=== PATIENT | female | born 1950 | race African-American/Black ===

== ENCOUNTER 2016-12-12 14:42 | Emergency (ER) | payer MEDICARE ==
[~2016-12-12] VITALS: Ht 162.6 cm; Wt 82.0 kg
[~2016-12-12 14:42] MED LIST: ACCURETIC1 TAB; ACCURETIC1 TAB OR; ADULT ASPIRIN L81 MG PO; ALTACE10 MG OR; AMLODIPINE5 MG PO; ATORVASTATIN CA10 MG PO; BABY ASPIRIN81 MG OR; BACTRIM DS1 TAB OR; CARBAMAZEPIN200 M1; CIPROFLOXACN500 MG PO; CRESTOR10 MG OR; FIORICE1 PO; FLEXERIL PO; GOLYTELY4000 ML; GOLYTELY4000 ML OR; HYDROCO/APAP1 TA9 PO; LISINOP/HCTZ1 TA1; LISINOP/HCTZ1 TAB PO; LORTAB 5 OR; LORTAB 5-325 MG1 TAB PO; LORTAB 7.5-3251 TAB PO; MEDDOSEPAK OR; METFORMIN500 M1 PO; METFORMIN500 MG; METFORMIN500 MG OR; METFORMIN500 MG PO; NAPROSYN500 MG PO; NAPROXEN500 MG; NEOMYCIN500 MG OR; NEXIUM40 M1 PO; PCE500 MG OR; PHENERGAN SUPP RE; PROTONIX40 M2 PO; QC ASPIRIN OR; SIMVASTATIN40 MG; SIMVASTATIN40 MG OR; SIMVASTATIN40 MG PO; TEGRETOL OR; TEGRETOL200 MG PO; VITAMIN B-12500 MCG PO; ZOFRAN4 MG/TAB PO; [UNRECOGNIZED DRUG - REMARK]
[2016-12-12 16:17] LABS: URINE BILIRUBIN - DIPSTICK NEGATIVE (NEGATIVE); URINE BLOOD DIPSTICK TRACE-INTACT (NEGATIVE); URINE CLARITY CLEAR; URINE COLOR YELLOW; URINE GLUCOSE - DIPSTICK NEGATIVE (NEGATIVE); URINE KETONE NEGATIVE (NEGATIVE); URINE LEUK ESTERASE NEGATIVE (NEGATIVE); URINE NITRITE - DIPSTICK NEGATIVE (Negative); URINE PH 5.5 (4.5-8.0); URINE PROTEIN - DIPSTICK NEGATIVE (NEG-TRACE); URINE SPECIFIC GRAVITY <=1.005; URINE UROBILINOGEN - DIPSTICK 0.2 E.U./dL (0.2)
[2016-12-12 16:53] LABS: HEMATOCRIT 35.1 % (37.0-47.0); IMMATURE GRANULOCYTES 0.2 % (0.0-1.0); MEAN CELL VOLUME 84.6 fL CALC (80.0-100.0); MEAN CORPUSCULAR HGB 28.9 pG CALC (26.0-32.0); MEAN CORPUSCULAR HGB CONC 34.2 g/L CALC (32.0-36.0); NEUT# 2.81 thou/uL (2.00-7.15); RED BLOOD COUNT 4.15 mill/uL (4.20-5.60); RED CELL DISTRI WIDTH 13.3 % (11.5-15.5)
[2016-12-12 17:26] LABS: ALBUMIN 4.5 g/dL (3.2-5.0); ALKALINE PHOSPHATASE 117 u/l (38-126); ANION GAP 16 (6-22 (CALC)); BILIRUBIN, TOTAL 0.4 mg/dL (0.0-1.4); BUN 16 mg/dL (8-23); BUN/CREATININE RATIO 23 (12-20 (CALC)); CALCIUM 9.3 mg/dL (8.4-10.2); CARBON DIOXIDE 31 mmol/l (22-30); CHLORIDE 99 mmol/l (95-108); CREATININE 0.7 mg/dL (0.5-1.0); GFR > 60 ML/MIN (>=60 (CALC)); GFR FOR AFR.AMER. > 60 ML/MIN (>=60 (CALC)); GLUCOSE 127 mg/dL (82-115); SGOT/AST 21 u/l (9-36); SGPT/ALT 20 u/l (11-66); SODIUM 141 mmol/l (137-146); TOTAL PROTEIN 8.5 g/dL (6.3-8.2)
[2016-12-12 17:39] LABS: MYOGLOBIN 40 ng/mL (0 - 62)
[2016-12-12 18:15] VITALS: BP 166/77
== END 2016-12-12 18:35 | disposition home or self-care (01) ==
LOC: ED 14:42
PROVIDERS: Emergency Medicine
DX: R06.00 Dyspnea, unspecified (principal); R06.02 Shortness of breath; R00.2 Palpitations

== ENCOUNTER 2017-03-01 08:01 | Emergency (ER) | payer MEDICARE ==
[~2017-03-01] VITALS: Ht 162.6 cm; Wt 75.0 kg
[2017-03-01] MEDS ORDERED: CRESTOR5 MG PO (08:19)
[2017-03-01] MEDS ORDERED: FLEXERIL PO (10:54)
[2017-03-01 11:03] VITALS: BP 139/62
== END 2017-03-01 11:11 | disposition home or self-care (01) ==
LOC: ED 08:01
DX: M62.838 Other muscle spasm (principal); M54.2 Cervicalgia; X50.0XXA Overexertion from strenuous movement or load, initial encounter; Y93.E9 Activity, other interior property and clothing maintenance; Y92.009 Unspecified place in unspecified non-institutional (private) residence as the place of occurrence of the external cause

== ENCOUNTER 2017-12-16 05:53 | Day surgery (SDC) | payer MEDICARE ==
[~2017-12-16] VITALS: Ht 162.6 cm; Wt 73.0 kg
[~2017-12-16 05:53] MED LIST changes: +CRESTOR5 MG PO; +PRAVASTATIN SOD20 MG PO
[2017-12-16 07:45] VITALS: BP 121/58
== END 2017-12-16 08:10 | disposition home or self-care (01) ==
LOC: ENDO 05:53 → ORM 08:45
PROVIDERS: ATTEND Surgery
PROC: 0DJD8ZZ Inspection of Lower Intestinal Tract, Via Natural or Artificial Opening Endoscopic (ICD-10-PCS; principal; 2017-12-16)
DX: R97.0 Elevated carcinoembryonic antigen [CEA] (principal); K21.9 Gastro-esophageal reflux disease without esophagitis; G40.909 Epilepsy, unspecified, not intractable, without status epilepticus; I10 Essential (primary) hypertension; E78.5 Hyperlipidemia, unspecified; E11.9 Type 2 diabetes mellitus without complications; Z79.84 Long term (current) use of oral hypoglycemic drugs; Z85.038 Personal history of other malignant neoplasm of large intestine; Z90.49 Acquired absence of other specified parts of digestive tract

== ENCOUNTER 2017-12-20 01:14 | Emergency (ER) | payer MEDICARE ==
[~2017-12-20] VITALS: Ht 162.6 cm; Wt 72.8 kg
[2017-12-20 02:58] LABS: HEMATOCRIT 35.6 % (37.0-47.0); HEMOGLOBIN 12.1 g/dl (12.0-16.0); IMMATURE GRANULOCYTES 0.2 % (0.0-1.0); MEAN CELL VOLUME 86.8 fL CALC (80.0-100.0); MEAN CORPUSCULAR HGB 29.5 pG CALC (26.0-32.0); NEUT# 3.42 thou/uL (2.00-7.15); RED BLOOD COUNT 4.1 mill/uL (4.20-5.60); RED CELL DISTRI WIDTH 13.3 % (11.5-15.5)
[2017-12-20 02:59] LABS: URINE BILIRUBIN - DIPSTICK NEGATIVE (NEGATIVE); URINE BLOOD DIPSTICK NEGATIVE (NEGATIVE); URINE COLOR YELLOW; URINE GLUCOSE - DIPSTICK NEGATIVE (NEGATIVE); URINE KETONE NEGATIVE (NEGATIVE); URINE LEUK ESTERASE NEGATIVE (NEGATIVE); URINE NITRITE - DIPSTICK NEGATIVE (Negative); URINE PROTEIN - DIPSTICK NEGATIVE (NEG-TRACE); URINE UROBILINOGEN - DIPSTICK 0.2 E.U./dL (0.2)
[2017-12-20 03:02] LABS: BARBITURATES NEGATIVE (NEGATIVE); COCAINE NEGATIVE (NEGATIVE); METHADONE NEGATIVE (NEGATIVE); OXCYCODONE NEGATIVE (NEGATIVE); TETRAHYDROCANNABIONOL NEGATIVE (NEGATIVE); TRICYLIC ANTIDEPRESSANTS NEGATIVE (NEGATIVE)
[2017-12-20 03:03] LABS: URINE CLARITY CLEAR
[2017-12-20 03:04] LABS: ALBUMIN 4.1 g/dL (3.2-5.0); ALKALINE PHOSPHATASE 101 u/l (38-126); ANION GAP 19 (6-22 (CALC)); BILIRUBIN, TOTAL 0.2 mg/dL (0.0-1.4); BUN 10 mg/dL (8-23); BUN/CREATININE RATIO 15 (12-20 (CALC)); CARBON DIOXIDE 28 mmol/l (22-30); CHLORIDE 100 mmol/l (95-108); CREATININE 0.6 mg/dL (0.5-1.0); GFR > 60 ML/MIN (>=60 (CALC)); GFR FOR AFR.AMER. > 60 ML/MIN (>=60 (CALC)); POTASSIUM 3.8 mmol/l (3.5-5.1); SGOT/AST 23 u/l (9-36); SGPT/ALT 22 u/l (11-66); SODIUM 143 mmol/l (137-146); TOTAL PROTEIN 7.2 g/dL (6.3-8.2)
[2017-12-20 03:09] LABS: PROTHROMBIN TIME 10.8 SECONDS (9.0-12.5)
[2017-12-20 03:14] LABS: MYOGLOBIN 31 ng/mL (0 - 62)
[2017-12-20 05:19] VITALS: BP 158/73
== END 2017-12-20 05:30 | disposition home or self-care (01) ==
LOC: ED 01:14
PROVIDERS: Emergency Medicine
DX: R42 Dizziness and giddiness (principal); I10 Essential (primary) hypertension; E11.9 Type 2 diabetes mellitus without complications; Z79.84 Long term (current) use of oral hypoglycemic drugs; E78.00 Pure hypercholesterolemia, unspecified; Z85.038 Personal history of other malignant neoplasm of large intestine

== ENCOUNTER 2018-04-26 20:02 | Emergency (ER) | payer MEDICARE ==
[~2018-04-26] VITALS: Ht 162.6 cm; Wt 74.0 kg
[2018-04-26] MEDS ORDERED: ORPHENADRINE100 MG PO (21:46)
[2018-04-26] MEDS ORDERED: IBUPROFEN600 MG PO (21:46)
[2018-04-26 21:55] VITALS: BP 158/77
== END 2018-04-26 21:55 | disposition home or self-care (01) ==
LOC: ED 20:02
DX: M47.812 Spondylosis without myelopathy or radiculopathy, cervical region (principal); I10 Essential (primary) hypertension; E11.9 Type 2 diabetes mellitus without complications; E78.00 Pure hypercholesterolemia, unspecified; Z87.19 Personal history of other diseases of the digestive system

== ENCOUNTER 2018-06-30 08:26 | Emergency (ER) | payer MEDICARE ==
[~2018-06-30] VITALS: Ht 162.6 cm; Wt 71.0 kg
[~2018-06-30 08:26] MED LIST changes: +IBUPROFEN600 MG PO; +ORPHENADRINE100 MG PO
[2018-06-30] MEDS ORDERED: VOLTAREN - GENE75 MG PO ×2 (09:41→10:15)
[2018-06-30 10:24] VITALS: BP 134/77
== END 2018-06-30 10:24 | disposition home or self-care (01) ==
LOC: ED 08:26
DX: M16.12 Unilateral primary osteoarthritis, left hip (principal); M79.605 Pain in left leg; M25.552 Pain in left hip

== ENCOUNTER 2018-11-07 08:27 | Emergency (ER) | payer MEDICARE ==
[~2018-11-07] VITALS: Ht 162.6 cm; Wt 73.6 kg
[~2018-11-07 08:27] MED LIST changes: +VOLTAREN - GENE75 MG PO
[2018-11-07] MEDS ORDERED: PREDNISONE10 MG PO ×2 (11:32→11:34)
[2018-11-07] MEDS ORDERED: TORADOL PO (11:32)
[2018-11-07] MEDS ORDERED: FLEXERIL PO (11:33)
[2018-11-07 11:48] VITALS: BP 160/82
== END 2018-11-07 12:12 | disposition home or self-care (01) ==
LOC: ED 08:27
DX: M54.5 Low back pain (principal); M54.2 Cervicalgia; G89.29 Other chronic pain; I10 Essential (primary) hypertension; E11.9 Type 2 diabetes mellitus without complications; M19.90 Unspecified osteoarthritis, unspecified site

== ENCOUNTER 2019-04-11 01:38 | Emergency (ER) | payer MEDICARE ==
[~2019-04-11] VITALS: Ht 162.6 cm; Wt 73.0 kg
[~2019-04-11 01:38] MED LIST changes: +PREDNISONE10 MG PO; +TORADOL PO
[2019-04-11 02:40] VITALS: BP 168/80
== END 2019-04-11 02:40 | disposition home or self-care (01) ==
LOC: ED 01:38
DX: E11.9 Type 2 diabetes mellitus without complications (principal); I10 Essential (primary) hypertension; Z79.84 Long term (current) use of oral hypoglycemic drugs

== ENCOUNTER 2021-02-14 00:52 | Emergency (ER) | payer MEDICARE ==
[~2021-02-14] VITALS: Ht 162.6 cm; Wt 72.0 kg
[2021-02-14 01:33] VITALS: BP 132/63
== END 2021-02-14 01:39 | disposition home or self-care (01) ==
LOC: ED 00:52
DX: E11.65 Type 2 diabetes mellitus with hyperglycemia (principal); I10 Essential (primary) hypertension; Z79.84 Long term (current) use of oral hypoglycemic drugs

== ENCOUNTER → 2021-05-31 | Outpatient (REF) | payer MEDICARE ==
[2021-05-31 10:31] LABS: ALBUMIN 4.1 g/dL (3.2-5.0); ALKALINE PHOSPHATASE 82 u/l (38-126); ANION GAP 11 (6-22 (CALC)); BILIRUBIN, TOTAL 0.4 mg/dL (0.0-1.4); BUN 16 mg/dL (8-23); BUN/CREATININE RATIO 18 (12-20 (CALC)); CALCULATED LDLCHOLESTEROL 173 mg/dL (62-129 (CALC)); CARBON DIOXIDE 29 mmol/l (22-30); CHLORIDE 101 mmol/l (95-108); CREATININE 0.9 mg/dL (0.5-1.0); GFR > 60 ML/MIN (>=60 (CALC)); GFR FOR AFR.AMER. > 60 ML/MIN (>=60 (CALC)); HDL CHOLESTEROL 52 mg/dL (>=40); POTASSIUM 4.4 mmol/l (3.5-5.1); SGOT/AST 24 u/l (9-36); SODIUM 137 mmol/l (137-146); TOTAL CHOLESTEROL 256 mg/dl (0-199); TOTAL PROTEIN 7.4 g/dL (6.3-8.2); TOTAL TRIGLYCERIDES 155 mg/dl (30-149); VLDL CHOLESTROL 31 mg/dl (0-48 (CALC))
== END | disposition home or self-care (01) ==
LOC: LAB 09:05
PROVIDERS: ATTEND Internal Medicine
DX: E11.40 Type 2 diabetes mellitus with diabetic neuropathy, unspecified (principal); E78.49 Other hyperlipidemia; I10 Essential (primary) hypertension

== ENCOUNTER 2021-06-02 12:43 | Emergency (ER) | payer MEDICARE ==
[~2021-06-02] VITALS: Ht 162.6 cm; Wt 74.5 kg
[2021-06-02 13:23] LABS: HEMATOCRIT 37.9 % (37.0-47.0); HEMOGLOBIN 12.2 g/dl (12.0-16.0); MEAN CELL VOLUME 82.8 fL CALC (80.0-100.0); MEAN CORPUSCULAR HGB 26.6 pG CALC (26.0-32.0); MEAN CORPUSCULAR HGB CONC 32.2 g/dL CAL (32.0-36.0); NEUT# 3.51 thou/uL (2.00-7.15); RED BLOOD COUNT 4.58 mill/uL (4.20-5.60); RED CELL DISTRI WIDTH 14.3 % (11.5-15.5)
[2021-06-02 13:36] LABS: ACT PARTIAL THROMBO TIME 22.1 SECONDS (20.0-32.5); ALBUMIN 4.3 g/dL (3.2-5.0); ALKALINE PHOSPHATASE 79 u/l (38-126); AMYLASE 70 u/l (30-110); ANION GAP 14 (6-22 (CALC)); BILIRUBIN, TOTAL 0.4 mg/dL (0.0-1.4); BUN 15 mg/dL (8-23); BUN/CREATININE RATIO 17 (12-20 (CALC)); CARBON DIOXIDE 27 mmol/l (22-30); CHLORIDE 100 mmol/l (95-108); CREATININE 0.8 mg/dL (0.5-1.0); ETHYL ALCOHOL 0 mg/dl (0-30); GFR > 60 ML/MIN (>=60 (CALC)); GFR FOR AFR.AMER. > 60 ML/MIN (>=60 (CALC)); LIPASE 32 u/l (23-300); POTASSIUM 4.1 mmol/l (3.5-5.1); PROTHROMBIN TIME 10.5 SECONDS (9.0-12.5); SODIUM 137 mmol/l (137-146)
[2021-06-02 13:37] LABS: SGOT/AST 82 u/l (9-36)
[2021-06-02 14:31] LABS: URINE BILIRUBIN - DIPSTICK NEGATIVE (NEGATIVE); URINE BLOOD DIPSTICK TRACE-INTACT (NEGATIVE); URINE COLOR YELLOW; URINE GLUCOSE - DIPSTICK 100 mg/dL (NEGATIVE); URINE KETONE NEGATIVE (NEGATIVE); URINE LEUK ESTERASE NEGATIVE (NEGATIVE); URINE PROTEIN - DIPSTICK NEGATIVE (NEG-TRACE); URINE SPECIFIC GRAVITY <=1.005; URINE UROBILINOGEN - DIPSTICK 0.2 E.U./dL (0.2)
[2021-06-02 14:32] LABS: URINE NITRITE - DIPSTICK NEGATIVE (Negative)
[2021-06-02 15:02] VITALS: BP 132/66
== END 2021-06-02 15:03 | disposition home or self-care (01) ==
LOC: ED 12:43
DX: R55 Syncope and collapse (principal); I10 Essential (primary) hypertension; E11.9 Type 2 diabetes mellitus without complications; G40.909 Epilepsy, unspecified, not intractable, without status epilepticus; M25.521 Pain in right elbow; Z85.038 Personal history of other malignant neoplasm of large intestine; Z79.84 Long term (current) use of oral hypoglycemic drugs; Z20.822 Contact with and (suspected) exposure to COVID-19

== ENCOUNTER 2021-12-02 08:38 | Emergency (ER) | payer MEDICARE ==
[~2021-12-02] VITALS: Ht 162.6 cm; Wt 72.0 kg
[2021-12-02 09:00] VITALS: BP 143/73
[2021-12-02 09:11] VITALS: BP 143/73
== END 2021-12-02 09:17 | disposition home or self-care (01) ==
LOC: ED 08:38
DX: E11.65 Type 2 diabetes mellitus with hyperglycemia (principal); I10 Essential (primary) hypertension; E78.5 Hyperlipidemia, unspecified; Z79.84 Long term (current) use of oral hypoglycemic drugs; Z85.038 Personal history of other malignant neoplasm of large intestine

== ENCOUNTER 2022-03-20 10:00 | Emergency (ER) | payer MEDICARE ==
[~2022-03-20] VITALS: Ht 162.6 cm; Wt 72.7 kg
[2022-03-20] VITALS (9 sets, daily range): BP systolic 140–160; BP diastolic 47–99
[~2022-03-20 10:00] MED LIST changes: -AMLODIPINE5 MG PO; +NORVASC5 M1 PO
[2022-03-20 10:28] LABS: GFR FOR AFR.AMER. > 60 ML/MIN (>=60 (CALC)); GFR OTHER RACES > 60 ML/MIN (>=60 (CALC))
[2022-03-20 10:33] LABS: HEMATOCRIT 36.7 % (37.0-47.0); HEMOGLOBIN 12.1 g/dl (12.0-16.0); IMMATURE GRANULOCYTES 0.1 % (0.0-5.0); MEAN CELL VOLUME 80.5 fL CALC (80.0-100.0); MEAN CORPUSCULAR HGB 26.5 pG CALC (26.0-32.0); NEUT# 7.9 thou/uL (2.00-7.15); RED BLOOD COUNT 4.56 mill/uL (4.20-5.60); RED CELL DISTRI WIDTH 15.4 % (11.5-15.5)
[2022-03-20 11:14] LABS: ALBUMIN 3.6 g/dL (3.2-5.0); ALKALINE PHOSPHATASE 68 u/l (38-126); BILIRUBIN, TOTAL 0.6 mg/dL (0.0-1.4); BUN 11 mg/dL (8-23); BUN/CREATININE RATIO 15 (12-20 (CALC)); CARBON DIOXIDE 25 mmol/l (22-30); CHLORIDE 91 mmol/l (95-108); CREATININE 0.7 mg/dL (0.5-1.0); GFR FOR AFR.AMER. > 60 ML/MIN (>=60 (CALC)); GFR OTHER RACES > 60 ML/MIN (>=60 (CALC)); SGOT/AST 40 u/l (9-36); TOTAL PROTEIN 6.6 g/dL (6.3-8.2)
[2022-03-20 11:15] LABS: ANION GAP 11 (6-22 (CALC)); POTASSIUM 3.4 mmol/l (3.5-5.1); SODIUM 124 mmol/l (137-146)
[2022-03-20 11:34] LABS: URINE BILIRUBIN - DIPSTICK NEGATIVE (NEGATIVE); URINE BLOOD DIPSTICK MODERATE (NEGATIVE); URINE COLOR YELLOW; URINE GLUCOSE - DIPSTICK NEGATIVE (NEGATIVE); URINE KETONE 15 mg/dL (NEGATIVE); URINE LEUK ESTERASE NEGATIVE (NEGATIVE); URINE SPECIFIC GRAVITY <=1.005; URINE UROBILINOGEN - DIPSTICK 0.2 E.U./dL (0.2)
[2022-03-20 11:37] LABS: URINE NITRITE - DIPSTICK NEGATIVE (Negative)
[2022-03-20 11:46] LABS: URINE EPITHELIAL CELLS RARE EPI/hpf (0-FEW); URINE PROTEIN - DIPSTICK NEGATIVE (NEG-TRACE); URINE RBC 0-2 RBC/hpf (0-5)
[2022-03-20 11:49] LABS: INTERNATIONAL NORMALIZED RATIO 1.1 RATIO (0.7-1.3); PROTHROMBIN TIME 11.3 SECONDS (9.0-12.5)
== END 2022-03-20 15:30 | disposition short-term general hospital (02) ==
LOC: ED 10:00
PROVIDERS: Family Medicine
DX: I63.9 Cerebral infarction, unspecified (principal); R29.701 NIHSS score 1; E87.1 Hypo-osmolality and hyponatremia; I10 Essential (primary) hypertension; E11.9 Type 2 diabetes mellitus without complications; E78.5 Hyperlipidemia, unspecified; K21.9 Gastro-esophageal reflux disease without esophagitis; G40.909 Epilepsy, unspecified, not intractable, without status epilepticus; Z87.891 Personal history of nicotine dependence; Z85.841 Personal history of malignant neoplasm of brain; Z85.038 Personal history of other malignant neoplasm of large intestine; Z79.84 Long term (current) use of oral hypoglycemic drugs; Z20.822 Contact with and (suspected) exposure to COVID-19
CPT/HCPCS: Q3014; Q9967

== ENCOUNTER 2022-06-11 07:45 | Day surgery (SDC) | payer MEDICARE ==
[~2022-06-11] VITALS: Ht 162.6 cm; Wt 66.7 kg
[2022-06-11 10:02] VITALS: BP 117/69
== END 2022-06-11 10:23 | disposition home or self-care (01) ==
LOC: ENDO 07:45 → ORM 08:00 → ENDO 09:00
PROVIDERS: ATTEND Surgery
PROC: 0DJD8ZZ Inspection of Lower Intestinal Tract, Via Natural or Artificial Opening Endoscopic (ICD-10-PCS; principal; 2022-06-11)
DX: R97.0 Elevated carcinoembryonic antigen [CEA] (principal); R68.89 Other general symptoms and signs; K64.8 Other hemorrhoids; I10 Essential (primary) hypertension; E11.9 Type 2 diabetes mellitus without complications; G40.909 Epilepsy, unspecified, not intractable, without status epilepticus; E78.5 Hyperlipidemia, unspecified; K21.9 Gastro-esophageal reflux disease without esophagitis; Z79.84 Long term (current) use of oral hypoglycemic drugs; Z85.038 Personal history of other malignant neoplasm of large intestine; Z90.49 Acquired absence of other specified parts of digestive tract

== ENCOUNTER 2022-09-08 08:10 | Emergency (ER) | payer MEDICARE ==
[~2022-09-08] VITALS: Ht 162.6 cm; Wt 65.1 kg
[2022-09-08 08:31] VITALS: BP 135/58
[2022-09-08 09:00] VITALS: BP 119/50
[2022-09-08 09:18] LABS: HEMATOCRIT 36.7 % (37.0-47.0); HEMOGLOBIN 12.2 g/dl (12.0-16.0); IMMATURE GRANULOCYTES 0.2 % (0.0-5.0); MEAN CELL VOLUME 82.8 fL CALC (80.0-100.0); MEAN CORPUSCULAR HGB 27.5 pG CALC (26.0-32.0); MEAN CORPUSCULAR HGB CONC 33.2 g/dL CAL (32.0-36.0); NEUT# 3.62 thou/uL (2.00-7.15); RED BLOOD COUNT 4.43 mill/uL (4.20-5.60); RED CELL DISTRI WIDTH 18.4 % (11.5-15.5)
[2022-09-08 09:30] VITALS: BP 118/55
[2022-09-08 09:40] LABS: ALBUMIN 4.2 g/dL (3.2-5.0); ALKALINE PHOSPHATASE 67 u/l (38-126); ANION GAP 12 (6-22 (CALC)); BUN 20 mg/dL (8-23); BUN/CREATININE RATIO 25 (12-20 (CALC)); CARBON DIOXIDE 27 mmol/l (22-30); CHLORIDE 101 mmol/l (95-108); CREATININE 0.8 mg/dL (0.5-1.0); GFR FOR AFR.AMER. > 60 ML/MIN (>=60 (CALC)); GFR OTHER RACES > 60 ML/MIN (>=60 (CALC)); POTASSIUM 3.6 mmol/l (3.5-5.1); SGOT/AST 43 u/l (9-36); SODIUM 137 mmol/l (137-146); TOTAL PROTEIN 7.5 g/dL (6.3-8.2)
[2022-09-08 09:41] LABS: BILIRUBIN, TOTAL 0.9 mg/dL (0.0-1.4)
[2022-09-08 10:00] VITALS: BP 140/59
[2022-09-08 10:19] VITALS: BP 140/59
== END 2022-09-08 10:30 | disposition home or self-care (01) ==
LOC: ED 08:10
PROVIDERS: Family Medicine
DX: E11.65 Type 2 diabetes mellitus with hyperglycemia (principal); I10 Essential (primary) hypertension; E78.00 Pure hypercholesterolemia, unspecified; Z79.84 Long term (current) use of oral hypoglycemic drugs

== ENCOUNTER 2024-09-11 09:49 | Emergency (ER) | payer MEDICARE ==
[2024-09-11] VITALS (10 sets, daily range): BP systolic 136–151; BP diastolic 60–75
[~2024-09-11] VITALS: Ht 162.6 cm; Wt 70.0 kg
[~2024-09-11 09:49] MED LIST changes: +LEVETIRACETAM500 MG PO; +METFORMIN HCL1000 MG PO
[2024-09-11] MEDS ORDERED: SODIUM CHLORIDE 0.9% 1,000 ML IV ONE (10:30)
[2024-09-11 11:28] LABS: BASO% 0.4 % (0-3); EOS% 0.2 % (0-8); HEMATOCRIT 40.5 % (37.0-47.0); HEMOGLOBIN 13.1 g/dl (12.0-16.0); IMMATURE GRANULOCYTES 0.4 % (0.0-5.0); LYMPH% 28.4 % (15-41); MEAN CELL VOLUME 89.8 fL CALC (80.0-100.0); MEAN CORPUSCULAR HGB CONC 32.3 g/dL CAL (32.0-36.0); MONO% 8.1 % (2-13); NEUT# 3.33 thou/uL (2.00-7.15); NEUT% 62.5 % (42-76); RED BLOOD COUNT 4.51 mill/uL (4.20-5.60); RED CELL DISTRI WIDTH 13.2 % (11.5-15.5)
[2024-09-11 11:52] LABS: ALBUMIN 4.7 g/dL (3.2-5.0); BILIRUBIN, TOTAL 0.8 mg/dL (0.02-1.3); CREATININE 0.8 mg/dL (0.5-1.0); POTASSIUM 4.2 mmol/l (3.5-5.1); TOTAL PROTEIN 8.1 g/dL (6.3-8.2)
== END 2024-09-11 13:25 | disposition home or self-care (01) ==
LOC: ED 09:49
PROVIDERS: Family Medicine
DX: E11.65 Type 2 diabetes mellitus with hyperglycemia (principal); I10 Essential (primary) hypertension; E78.00 Pure hypercholesterolemia, unspecified